=== PATIENT | female | born 1940 | race Caucasian/White ===

== ENCOUNTER 2017-03-12 10:41 | Emergency (ER) | payer MEDICARE ==
[~2017-03-12] VITALS: Ht 157.5 cm; Wt 50.0 kg
[~2017-03-12 10:41] MED LIST: CEFEPIME2 GM IV; CLONAZEPAM0.5 MG PO; CLONIDINE0.1 MG PO; D32000 UNIT PO; ESCITALOPRAM OX10 MG PO; FISH OIL1000 MG PO; GARAMYCIN IV; K-DUR/KLOR-CON20 MEQ; LISINOPRIL10 MG PO; METFORMIN500 M1 PO; POTASSIUM CHLO10 ME2 OR; PROBIOTIC ACIDOPHILU PO; ROCEPHIN1 G1 IJ
[2017-03-12 10:58] VITALS: BP 166/77
[2017-03-12] MEDS ORDERED: CEPHALEXIN500 M1 PO (10:58)
[2017-03-12] MEDS ORDERED: MOTRIN400 MG PO (10:58)
[2017-03-12] MEDS ORDERED: ZESTRIL10 M1 PO (11:00)
[2017-03-12] MEDS ORDERED: PLAVIX75 MG PO (11:01)
[2017-03-12] MEDS ORDERED: AMLODIPINE10 MG PO (11:01)
[2017-03-12 11:11] LABS: URINE BILIRUBIN - DIPSTICK NEGATIVE (NEGATIVE); URINE BLOOD DIPSTICK LARGE (NEGATIVE); URINE CLARITY CLOUDY; URINE COLOR ORANGE; URINE GLUCOSE - DIPSTICK 100 mg/dL (NEGATIVE); URINE KETONE NEGATIVE (NEGATIVE); URINE LEUK ESTERASE MODERATE (NEGATIVE); URINE NITRITE - DIPSTICK POSITIVE (Negative); URINE PROTEIN - DIPSTICK 100 mg/dL (NEG-TRACE); URINE SPECIFIC GRAVITY >=1.030
[2017-03-12 11:20] LABS: URINE SQUAMOUS EPITHELIAL CELL FEW EPI/hpf (0-FEW); URINE WBC >100 WBC/hpf (0-5)
== END 2017-03-12 11:35 | disposition home or self-care (01) ==
LOC: ED 10:41
PROVIDERS: Family Medicine
DX: N39.0 Urinary tract infection, site not specified (principal); Z87.440 Personal history of urinary (tract) infections; Z79.02 Long term (current) use of antithrombotics/antiplatelets

== ENCOUNTER 2021-11-13 22:33 | Emergency (ER) | payer MEDICARE ==
[~2021-11-13] VITALS: Ht 157.5 cm; Wt 38.0 kg
[~2021-11-13 22:33] MED LIST changes: +AMLODIPINE10 MG PO; +CEPHALEXIN500 M1 PO; +MOTRIN400 MG PO; +PLAVIX75 MG PO; +ZESTRIL10 M1 PO
[2021-11-13 22:37] VITALS: BP 141/94
[2021-11-13 22:45] VITALS: BP 135/60
[2021-11-13 22:57] LABS: HEMATOCRIT 33.3 % (37.0-47.0); MEAN CELL VOLUME 95.1 fL CALC (80.0-100.0); MEAN CORPUSCULAR HGB 30.3 pG CALC (26.0-32.0); MEAN CORPUSCULAR HGB CONC 31.8 g/dL CAL (32.0-36.0); NEUT# 1.46 thou/uL (2.00-7.15); RED BLOOD COUNT 3.5 mill/uL (4.20-5.60); RED CELL DISTRI WIDTH 14.5 % (11.5-15.5)
[2021-11-13 23:00] VITALS: BP 126/48
[2021-11-13 23:04] LABS: HEMOGLOBIN 10.6 g/dl (12.0-16.0)
[2021-11-13 23:18] LABS: ALKALINE PHOSPHATASE 70 u/l (38-126); ANION GAP 10 (6-22 (CALC)); BILIRUBIN, TOTAL 0.4 mg/dL (0.0-1.4); BUN 18 mg/dL (8-23); BUN/CREATININE RATIO 21 (12-20 (CALC)); CARBON DIOXIDE 25 mmol/l (22-30); CHLORIDE 105 mmol/l (95-108); CREATININE 0.9 mg/dL (0.5-1.0); GFR 60 ML/MIN (>=60 (CALC)); GFR FOR AFR.AMER. > 60 ML/MIN (>=60 (CALC)); SGOT/AST 29 u/l (9-36); SODIUM 137 mmol/l (137-146); TOTAL PROTEIN 6.9 g/dL (6.3-8.2)
[2021-11-13 23:30] LABS: MYOGLOBIN 65 ng/mL (0 - 62)
[2021-11-13 23:31] VITALS: BP 111/46
[2021-11-13 23:45] VITALS: BP 112/50
[2021-11-14] VITALS: BP 126/63
[2021-11-14 00:15] VITALS: BP 115/51
== END 2021-11-14 00:32 | disposition home or self-care (01) ==
LOC: ED 22:33
PROVIDERS: Family Medicine
DX: S51.811A Laceration without foreign body of right forearm, initial encounter (principal); R42 Dizziness and giddiness; W18.30XA Fall on same level, unspecified, initial encounter; Z87.440 Personal history of urinary (tract) infections; Z86.74 Personal history of sudden cardiac arrest; Z95.5 Presence of coronary angioplasty implant and graft